=== PATIENT | female | born 1960 | race African-American/Black ===

== ENCOUNTER 2018-12-14 13:52 | Observation (INO) ==
[2018-12-14] MEDS ORDERED: ASPIRIN PO ONE (13:55)
[2018-12-14 14:36] LABS: BASO# 0.02 X1000 (0.0-0.2); BASO% 0.4 % (0.0-0.8); EOS# 0.07 X1000 (0.0-0.7); EOS% 1.3 % (0.0-10.0); HEMATOCRIT 37.1 % (37.0-47.0); HEMOGLOBIN 12.6 g/dL (12.0-16.0); LYMPH# 2.99 X1000 (1.2-3.4); MCH 24.6 PG (27-31); MCV 72.3 FL (81-99); MONO# 0.36 X1000 (0.11-0.59); MONO% 6.9 % (1.7-9.3); MPV 11.3 FL (7.4-10.4); NEUT# 1.81 X1000 (1.4-6.5); NEUT% 34.4 % (42.2-75.2); PLT 184 X1000 (130-400); RBC 5.13 XMIL (4.2-5.4); RDW 15.4 % (11.5-14.5); WBC 5.25 X1000 (4.8-10.8)
[2018-12-14] MEDS ORDERED: NITROGLYCERIN SL ONE (14:40)
--- NOTE | 2018-12-14 14:41 | Diag Imaging Result Doc PS360 ---
CHEST-2 VIEWS - 12/14/2018 INDICATION: cp COMPARISON: 08/17/2018 FINDINGS: The lungs are normally expanded and clear. Heart size and mediastinal contours are normal. No pneumothorax or pleural effusion. IMPRESSION: Negative exam. Electronically signed by Jeremiah Robertson 12/14/2018 2:39 PM
[2018-12-14 14:50] LABS: ALBUMIN 4.3 g/dL (3.5-5.0); CALCIUM 9.4 mg/dL (8.8-10.2); POTASSIUM 5.1 mmol/L (3.5-5.1); TOTAL BILIRUBIN 0.5 mg/dL (0.20-1.00); TOTAL PROTEIN 7.3 g/dL (6.3-8.3)
[2018-12-14 14:52] LABS: INR 1.15; PROTIME 15.3 Seconds (11.0-16.0)
[2018-12-14 14:53] LABS: PTT 27.2 Seconds (22.3-41.8)
--- NOTE | 2018-12-14 16:39 | EKG Report ---
Test Performed on : 12/14/2018 3:46:48 PM Test Reason : repeat Blood Pressure : / mmHG Vent. Rate : 073 BPM Atrial Rate : 073 BPM P-R Int : 172 ms QRS Dur : 090 ms QT Int : 404 ms P-R-T Axes : 079 -56 062 degrees QTc Int : 445 ms Sinus rhythm. with marked sinus arrhythmia. with frequent premature ventricular complexes. Biatrial enlargement Left anterior fascicular block Abnormal ECG When compared with ECG of 14-DEC-2018 13:58, (Unconfirmed) No significant change was found Unconfirmed Result
--- NOTE | 2018-12-14 16:39 | EKG Report ---
Test Performed on : 12/14/2018 1:58:58 PM Test Reason : cp Blood Pressure : / mmHG Vent. Rate : 088 BPM Atrial Rate : 088 BPM P-R Int : 158 ms QRS Dur : 090 ms QT Int : 386 ms P-R-T Axes : 085 -53 065 degrees QTc Int : 467 ms Sinus rhythm. with frequent premature ventricular complexes. in a pattern of bigeminy. Biatrial enlargement Pulmonary disease pattern Left anterior fascicular block Abnormal ECG When compared with ECG of 05-JUN-2017 05:37, premature ventricular complexes. are now present Vent. rate has increased BY 33 BPM QT has lengthened Unconfirmed Result
[2018-12-14] MEDS ORDERED: LOVENOX 1 MG/KG SUBQ ONE (17:40)
--- NOTE | 2018-12-14 18:01 | PROVIDER DOCUMENTATION ---
This chart was entered by Keyla Murray Scribe, acting as scribe for Musa Su MD. HPI-Chest Pain - General Chief Complaint: Chest Pain Stated Complaint: CHEST / ARM PAIN Time Seen by Provider: 12/14/18 14:00 Source: patient Allergies/Adverse Reactions: Patient Allergies Allergy/AdvReac Type Severity Reaction Status Date / Time azithromycin Allergy Unknown Verified 11/18/16 06:57 Home Medications: Home Medication List Medication Instructions Recorded Confirmed Last Taken Type Amoxicillin 875 mg PO BID #20 tab 08/17/18 Unknown Rx Guaifenesin/Codeine [Robitussin-AC] 10 ml PO Q4H PRN PRN #4 oz 08/17/18 Unknown Rx - History of Present Illness-CP Nature of Presenting Problem: 58 y/o female presents to ED with intermittent tight/heavy sternal chest pain radiating to L shoulder and down L arm onset this morning around 10:00. Pt reports hx NV. Pt denies pain at time of exam. Pt is alert and oriented. Location: reports: other (sternal) Chest Pain Radiation: reports: arms (L), shoulders (L) Quality of Pain: reports: tightness, other (heavy) Severity in ED: mild, moderate Onset/Duration: 4-6 hours ago, this morning Timing: still present, intermittent Context/Activities at Onset: reports: none Modifying Factors: improves with: nothing Associated Symptoms: reports: denies symptoms Nitro Today/Relief: 0.4 mg x 1, provided by ED Aspirin Treatment Today: 325 mg x 1, provided by ED Prior Chest Pain/Cardiac Workup: reports: heart attack Similar Symptoms Previously?: Yes (hx NV) Recently Seen Here or By Another Healthcare Provider: No Review of Systems - Adult - REVIEW OF SYSTEMS - ADULT Constitutional: denies: chills, fever Eyes: reports: no symptoms reported Ears, Nose, Mouth & Throat: reports: no symptoms reported Cardiovascular: reports: chest pain. denies: palpitations Respiratory: denies: cough, shortness of breath Gastrointestinal: denies: abdominal pain, diarrhea, nausea, vomiting Genitourinary: reports: no symptoms reported Musculoskeletal: reports: joint pain (L shoulder), other (L arm). denies: back pain Integumentary: reports: no symptoms reported Neurological: denies: dizziness/vertigo, seizure Psychiatric: reports: no symptoms reported Endocrine: reports: no symptoms reported Hematologic/Lymphatic: reports: no symptoms reported Allergic/Immunologic: reports: no symptoms reported All Other Systems: Reviewed and Negative Past History - Adult - PAST MEDICAL HISTORY-ADULT Review of Records: reports: Old Records Reviewed, Nursing Assessment Review, Medications Reviewed Major Childhood Illnesses: reports: denies history Cardiovascular: reports: denies history, NV Respiratory: reports: denies history Gastrointestinal: reports: denies history Genitourinary: reports: denies history Musculoskeletal: reports: denies history Neurological: reports: denies history Psychiatric: reports: denies history Endocrine/Immune: reports: denies history Other Conditions: reports: denies history - PRIOR SURGERIES/PROCEDURES Surgical/Procedure History: reports: cholecystectomy, hysterectomy - IMMUNIZATION STATUS Childhood Immunizations: See Nurse Assessment Flu Vaccine: See Nurse Assessment - FAMILY HISTORY Family History: reviewed, not pertinent - SOCIAL HISTORY Smoking: greater than 1 pack/day Provider spent 3-5 mins advising pt. on dangers of tobacco.: Discussed manners to quit use, and f/u contacts for add'l counseling. Substance Use: none/never Alcohol Use Frequency: occasionally Living Situation: family Physical Exam-General - PHYSICAL EXAM-ADULT Initial Vital Signs Reviewed: Yes - CONSTITUTIONAL General Appearance: appears well, alert, no apparent distress - EYES Eyes: PERRL/EOMI, pink conjunctivae - HEAD, EARS, NOSE, MOUTH & THROAT HENMT: normocephalic/atraumatic, moist mucous membranes, normal ENT inspection - NECK Neck: non-tender, full range of motion - RESPIRATORY Respiratory: chest non-tender, lungs clear, normal breath sounds - CARDIOVASCULAR Cardiovascular: normal peripheral pulses, regular rate, rhythm - GASTROINTESTINAL (ABDOMEN) Abdominal Exam: normal bowel sounds, non tender, soft - MUSCULOSKELETAL Back Exam: normal inspection, no CVA tenderness Extremity: normal range of motion, non-tender, normal gait - SKIN Integumentary: normal color, warm/dry - NEUROLOGIC Neurologic: grossly normal - PSYCHIATRIC Psych/Mental Status: normal mood/affect, normal thought content, normal thought process - HEART Score HEART Score: History: Slightly Suspicious HEART Score: ECG: Normal HEART Score: Age: 45-65 Years HEART Score: Risk Factors for Atherosclerotic Disease: 1 or 2 Risk Factors HEART Score: Troponin: < or = Normal Limit Total HEART Score:: 2 Progress - PLAN OF CARE/RESULTS Progress/Plan/Lab Results: Vital Signs - 8 hr 12/14/18 14:40 12/14/18 15:00 12/14/18 16:30 Pulse Rate 74 77 67 Respiratory Rate 18 19 18 Blood Pressure 131/89 110/84 136/85 O2 Sat by Pulse Oximetry 100 100 99 Laboratory Results - last 24 hr 12/14/18 12/14/18 12/14/18 14:20 14:20 14:20 WBC 5.25 RBC 5.13 Hgb 12.6 Hct 37.1 MCV 72.3 L MCH 24.6 L MCHC 34.0 RDW Std Deviation 15.4 H Plt Count 184 MPV 11.3 H Immature Gran % (Auto) 0.0 Neut % (Auto) 34.4 L Lymph % (Auto) 57.0 H Carson % (Auto) 6.9 Eos % (Auto) 1.3 Baso % (Auto) 0.4 Immature Gran # (Auto) 0.00 Neut # (Auto) 1.81 Lymph # (Auto) 2.99 Carson # (Auto) 0.36 Eos # (Auto) 0.07 Baso # (Auto) 0.02 PT INR PTT (Actin FS) Sodium 142 Potassium 5.1 Chloride 104 Carbon Dioxide 27 Anion Gap 11 BUN 13 Creatinine 1.0 H Estimated GFR/1.73 m2 57 BUN/Creatinine Ratio 13 Glucose 92 Calculated Osmolality 283 Calcium 9.4 Total Bilirubin 0.50 AST 22 ALT 17 Alkaline Phosphatase 63 Creatine Kinase 137 Troponin T Djn-P-Syusqyjmsbc Pept 316 H Total Protein 7.3 Albumin 4.3 Globulin 3.0 Albumin/Globulin Ratio 1.0 12/14/18 12/14/18 12/14/18 14:20 14:20 15:27 WBC RBC Hgb Hct MCV MCH MCHC RDW Std Deviation Plt Count MPV Immature Gran % (Auto) Neut % (Auto) Lymph % (Auto) Carson % (Auto) Eos % (Auto) Baso % (Auto) Immature Gran # (Auto) Neut # (Auto) Lymph # (Auto) Carson # (Auto) Eos # (Auto) Baso # (Auto) PT 15.3 INR 1.15 PTT (Actin FS) 27.2 Sodium Potassium Chloride Carbon Dioxide Anion Gap BUN Creatinine Estimated GFR/1.73 m2 BUN/Creatinine Ratio Glucose Calculated Osmolality Calcium Total Bilirubin AST ALT Alkaline Phosphatase Creatine Kinase 129 Troponin T < 0.010 Yru-W-Ngajlzotbso Pept Total Protein Albumin Globulin Albumin/Globulin Ratio 12/14/18 15:27 WBC RBC Hgb Hct MCV MCH MCHC RDW Std Deviation Plt Count MPV Immature Gran % (Auto) Neut % (Auto) Lymph % (Auto) Carson % (Auto) Eos % (Auto) Baso % (Auto) Immature Gran # (Auto) Neut # (Auto) Lymph # (Auto) Carson # (Auto) Eos # (Auto) Baso # (Auto) PT INR PTT (Actin FS) Sodium Potassium Chloride Carbon Dioxide Anion Gap BUN Creatinine Estimated GFR/1.73 m2 BUN/Creatinine Ratio Glucose Calculated Osmolality Calcium Total Bilirubin AST ALT Alkaline Phosphatase Creatine Kinase Troponin T < 0.010 Vhh-S-Onjfpfarcro Pept Total Protein Albumin Globulin Albumin/Globulin Ratio Orders Category Date Time Status Admit - [facility] Routine AdmDCTranf 12/14/18 17:44 Active Cardiac Monitoring DIRECTED Care 12/14/18 13:55 Active Saline Loc NOW Care 12/14/18 13:55 Completed CHEST-2 VIEWS [RAD] Stat Exams 12/14/18 13:55 Completed CBC WITH ELECTRONIC DIFF [HEME] Stat Lab 12/14/18 14:20 Completed CK PROFILE [SP CHEM] Stat Lab 12/14/18 14:20 Completed CK PROFILE [SP CHEM] Stat Lab 12/14/18 15:27 Completed COMPREHENSIVE METABOLIC PANEL [CHEM] Stat Lab 12/14/18 14:20 Completed PRO B-NATRIURETIC PEPTIDE Stat Lab 12/14/18 14:20 Completed PROTIME WITH INR [COAG] Stat Lab 12/14/18 14:20 Completed PTT [COAG] Stat Lab 12/14/18 14:20 Completed TROPONIN T Stat Lab 12/14/18 14:20 Completed TROPONIN T Stat Lab 12/14/18 15:27 Completed Aspirin Med 12/14/18 13:55 Discontinued 325 mg PO NOW ONE Enoxaparin 1 mg/kg [Lovenox 1 mg/kg] Med 12/14/18 17:40 Discontinued 1 each SUBQ NOW ONE Nitroglycerin Sl [Nitroglycerin] Med 12/14/18 14:40 Discontinued 0.4 mg SL NOW ONE CP/SOB/Palp >45 yrs of Age Stat Oth 12/14/18 13:55 Ordered EKG [EKG] Stat Ther 12/14/18 13:55 Draft EKG [EKG] Stat Ther 12/14/18 15:27 Draft Transfer/Admit Order [TRANSFER] Routine Transfer 12/14/18 17:45 Ordered Laboratory Tests 12/14/18 12/14/18 12/14/18 14:20 14:20 14:20 WBC 5.25 RBC 5.13 Hgb 12.6 Hct 37.1 MCV 72.3 L MCH 24.6 L MCHC 34.0 RDW Std Deviation 15.4 H Plt Count 184 MPV 11.3 H Immature Gran % (Auto) 0.0 Neut % (Auto) 34.4 L Lymph % (Auto) 57.0 H Carson % (Auto) 6.9 Eos % (Auto) 1.3 Baso % (Auto) 0.4 Immature Gran # (Auto) 0.00 Neut # (Auto) 1.81 Lymph # (Auto) 2.99 Carson # (Auto) 0.36 Eos # (Auto) 0.07 Baso # (Auto) 0.02 PT INR PTT (Actin FS) Sodium 142 Potassium 5.1 Chloride 104 Carbon Dioxide 27 Anion Gap 11 BUN 13 Creatinine 1.0 H Estimated GFR/1.73 m2 57 BUN/Creatinine Ratio 13 Glucose 92 Calculated Osmolality 283 Calcium 9.4 Total Bilirubin 0.50 AST 22 ALT 17 Alkaline Phosphatase 63 Creatine Kinase 137 Troponin T Uyi-M-Dtaoegkgfth Pept 316 H Total Protein 7.3 Albumin 4.3 Globulin 3.0 Albumin/Globulin Ratio 1.0 12/14/18 12/14/18 12/14/18 14:20 14:20 15:27 WBC RBC Hgb Hct MCV MCH MCHC RDW Std Deviation Plt Count MPV Immature Gran % (Auto) Neut % (Auto) Lymph % (Auto) Carson % (Auto) Eos % (Auto) Baso % (Auto) Immature Gran # (Auto) Neut # (Auto) Lymph # (Auto) Carson # (Auto) Eos # (Auto) Baso # (Auto) PT 15.3 INR 1.15 PTT (Actin FS) 27.2 Sodium Potassium Chloride Carbon Dioxide Anion Gap BUN Creatinine Estimated GFR/1.73 m2 BUN/Creatinine Ratio Glucose Calculated Osmolality Calcium Total Bilirubin AST ALT Alkaline Phosphatase Creatine Kinase 129 Troponin T < 0.010 Het-I-Izfterhobwp Pept Total Protein Albumin Globulin Albumin/Globulin Ratio 12/14/18 15:27 WBC RBC Hgb Hct MCV MCH MCHC RDW Std Deviation Plt Count MPV Immature Gran % (Auto) Neut % (Auto) Lymph % (Auto) Carson % (Auto) Eos % (Auto) Baso % (Auto) Immature Gran # (Auto) Neut # (Auto) Lymph # (Auto) Carson # (Auto) Eos # (Auto) Baso # (Auto) PT INR PTT (Actin FS) Sodium Potassium Chloride Carbon Dioxide Anion Gap BUN Creatinine Estimated GFR/1.73 m2 BUN/Creatinine Ratio Glucose Calculated Osmolality Calcium Total Bilirubin AST ALT Alkaline Phosphatase Creatine Kinase Troponin T < 0.010 Zgy-A-Zmwxevuczhm Pept Total Protein Albumin Globulin Albumin/Globulin Ratio Result Diagrams: 12/14/18 14:20 12/14/18 14:20 - EKG 1 Time of EKG reading by physician:: 13:58 EKG Read and Signed by:: Musa Su EKG Interpretation (*Must complete 3 of following elements*): Abnormal Rate: 88 Rhythm: Sinus w/ frequent PVCs in a pattern of bigeminy Prentiss: normal QRS: other (biatrial enlargement; pulmonary disease pattern; L anterior fascicular block) ID Interval: normal ST Wave: normal 2 Time of EKG reading by physician:: 15:46 EKG Read and Signed by:: Musa Su EKG Interpretation (*Must complete 3 of following elements*): Abnormal Rate: 73 Rhythm: Sinus w/ marked sinus arrhythmia w/ frequent PVCs Prentiss: normal QRS: PVC's, other (bitarial enlargement; L anterior fascicular block) ID Interval: normal ST Wave: normal - XRAY 1 XRAY Study: Chest Impression: Normal (FINDINGS: The lungs are normally expanded and clear. Heart size and mediastinal contours are normal. No pneumothorax or pleural effusion. IMPRESSION: Negative exam. Electronically signed by Jeremiah Robertson 12/14/2018 2:39 PM) - CONSULTS/PCP/HOSPITALIST Notification #1 *Consult/PCP/Hospitalist*: Dr. Wills Time Discussed: 17:27 Reason/Comments: Chest pain Consult Disposition: Admit (consult cardiology) #2 Consult: Dr. Jerez, cardiology Time Discussed: 17:37 Reason/Comments: Chest pain Consult Disposition: Admit Departure - Departure Date of Disposition Decision: 12/14/18 Time of Disposition Decision: 18:00 DIAGNOSIS: Ischemic heart disease, Tobacco abuse disorder Hypertension Qualifiers: Hypertension type: unspecified Qualified Code(s): I10 - Essential (primary) hypertension Chest pain Qualifiers: Chest pain type: unspecified Qualified Code(s): R07.9 - Chest pain, unspecified Disposition: ADMITTED INPATIENT 09 Certified Medical Emergency: Emergent Condition: Stable Additional Freetext Instructions: ED Follow Up Instructions: You have been treated by a care provider in the Emergency Department. These instructions are being provided to you so you can have an understanding of how to care for yourself upon discharge. Upon discharge from the Emergency Department, you are responsible for making arrangements for follow-up care by a physician of your choice. Take all prescribed medications as directed. Return to the Emergency Department immediately for any new or worsening symptoms. You may call the Physician Referral phone number at [phone] to obtain a list of Physicians who are taking new patients. Referrals and Follow-Ups: None,PCP [NON-STAFF PROVIDER] - Discharge Education: Steps to Quit Smoking, Seuh-ni-Uyed - Critical Care Note This patient required my direct & personal management of CC.: No Attestation - Physician/ LEXI Attestation Patient care was provided by Advanced Practice Provider:: No The physician spent face to face time with patient:: Yes Advanced Practice Provider documentation review:: Supervising physician onsite and consulted in the evaluation and care of this patient. The physician did have a face to face encounter with the patient. This chart was documented by the indicated scribe, (Keyla Murray Scribe) and accurately reflects the services I performed and decisions made by me, Musa Su MD, as attested by the provider's signature.
[2018-12-14] MEDS ORDERED: LOVENOX ONE (18:12)
[2018-12-14] MEDS ORDERED: NITROGLYCERIN SL PRN (22:04)
[2018-12-14] MEDS ORDERED: ZOFRAN IV PRN (22:04)
[2018-12-14] MEDS ORDERED: MORPHINE IV PRN (22:04)
[2018-12-15] MEDS: LOVENOX SUBQ SCH ×2 (06:18→17:11)
[2018-12-15] MEDS ORDERED: LIPITOR PO SCH (09:00)
[2018-12-15] MEDS: ASPIRIN PO SCH (10:03)
[2018-12-15] MEDS: IMDUR PO SCH (10:03)
--- NOTE | 2018-12-15 12:29 | HISTORY AND PHYSICAL ---
ADDENDUM REPORT I saw the patient [id number] and fully agree with the assessment and plan of nurse practitioner Loree Santana. This is a 58-year-old female, who came into the emergency room with tightness and heaviness in her chest, radiating to left shoulder and down her left arm starting at 10 a.m. yesterday. She was noted to have negative serial cardiac enzymes, and acute myocardial ischemia has been ruled out, but she is known to have history of dyslipidemia. She has been admitted with chest pain, and we have obtained echocardiogram done today. She is also scheduled to have a Lexiscan myocardial perfusion study tomorrow morning. We consulted Cardiology over the phone from the emergency room, who has recommended her to have Lovenox given subcutaneously, and they will see the patient during this hospital admission. We will continue her on aspirin 81 mg daily along with atorvastatin 80 mg daily. Further recommendations will be forthcoming. cc: Gomez Wills MD
--- NOTE | 2018-12-15 12:30 | HISTORY AND PHYSICAL ---
PRIMARY CARE PHYSICIAN: Dr. Dsouza at the [facility] in [place]. CHIEF COMPLAINT: Chest pain. HISTORY OF PRESENTING ILLNESS: This is a 58-year-old, female who presented to [facility] ER with complaints of substernal chest pain that was intermittent, described it as a tight, heavy feeling that radiated to her left shoulder and left arm that began around 10 a.m. yesterday morning. It had resolved by the time she arrived to the emergency room. She is noted to have had an [place] in June of 2017 and states that this felt different from her previous [place] in that her previous one did not radiate down her arm and this pain has radiated into her shoulder and left arm. Her workup in the emergency room showed cardiac enzymes x2 sets have been negative. Her EKG showed sinus rhythm with marked sinus arrhythmias with frequent PVCs at 73. Chest x-ray was negative and so she has been admitted for further evaluation and treatment. PAST MEDICAL HISTORY: [place] in June of 2017. PAST SURGICAL HISTORY: Cholecystectomy and hysterectomy. FAMILY HISTORY: Reviewed and noncontributory. SOCIAL HISTORY: She currently lives with family. Smokes a half a pack of cigarettes a day and has done so for the past 30 years. Denied any alcohol or illicit drug use. ALLERGIES: Azithromycin. HOME MEDICATIONS: She takes aspirin 81 mg p.o. daily, Lipitor 80 mg p.o. daily, and isosorbide 30 mg p.o. daily. LABORATORY DATA: Showed a white blood cell count of 5.25, hemoglobin of 12.6, hematocrit 37.1, platelets 184,000. The PT and INR of 15.3 and 1.15. Sodium of 142, potassium 5.1, chloride 104, CO2 27, BUN of 13, creatinine 1, glucose 92. Cardiac enzymes have been negative x2 sets. ProBNP of 316. Chest x-ray showed a negative exam. EKG showed sinus rhythm with marked sinus arrhythmias with frequent PVCs at 73. REVIEW OF SYSTEMS: She denied any fever, chills, blurred vision, dizziness. She was positive for sternal intermittent chest pain that radiated to her left shoulder and left arm. Denied any shortness of breath, cough, abdominal pain, constipation, diarrhea, burning or hurting with urination. Denied any nausea or vomiting. PHYSICAL EXAMINATION: VITAL SIGNS: On arrival, she had a pulse of 74, respirations 18, blood pressure 131/89, saturating 100% on room air. GENERAL: This is a 58-year-old, -[place] female who was sitting on the side of the bed and answers questions appropriately. HEENT: Normocephalic and atraumatic. Normal ENT inspection. Oropharynx and nares are clear. Eyes: Pupils are equal, round, and reactive to light and accommodation. Extraocular movements are intact. NECK: Normal inspection. Normal range of motion. LUNGS: Clear to auscultation bilaterally with equal lung expansion and chest wall movement. HEART: With regular rate and rhythm. No murmurs, rubs, or gallops. ABDOMEN: Soft, nontender, nondistended. Bowel sounds are present x4 quadrants. MUSCULOSKELETAL: She has 5/5 strength x4 extremities. NEUROLOGICAL: The cranial nerves 2-12 appear grossly intact. ASSESSMENT: 1. Chest pain. 2. Coronary artery disease, history of. 3. Tobacco abuse. PLAN: She was admitted to the medical unit. Placed on telemetry, healthy heart diet. She will be n.p.o. after midnight for a myocardial perfusion scan in the a.m. We have consulted cardiology. We are going to do one more set of cardiac enzymes to complete her series of three. Continue her home medication. She is on Lovenox 60 mg subcutaneously q.12, morphine 2 mg IV q.2 hours p.r.n. Further orders after being seen by attending and by consultation. Dictated by RAVIN Hickman for Gomez Wills MD cc: RAVIN Hickman MD Rani Gill, MD
--- NOTE | 2018-12-15 15:04 | ECHO REPORT ---
ORDER DATE: 12/15/2018 ECHOCARDIOGRAM: INDICATION FOR PROCEDURE: Chest pain. History of coronary artery disease. FINDINGS: 1. The right atrium appears normal in size at 2.3. 2. Mild tricuspid regurgitation. The RV systolic pressure is 35. 3. Normal RV size and systolic function. 4. No significant pulmonic insufficiency. 5. Normal left atrial size with a volume index of 23. 6. No mitral valve prolapse. Mild mitral regurgitation. 7. Normal LV size, end-diastolic dimension of 4 cm. Normal wall thicknesses with a posterior and interventricular septal wall thickness of 0.7 and 1.1 cm respectively. Borderline normal to mildly reduced LV systolic function with an estimated EF of 45-50%. In some views, there is hypokinesis of the septum. 8. Aortic valve opens well. No evidence of stenosis or insufficiency. 9. Aorta appears normal in visualized segments. 10. No pericardial effusion seen. cc: MD Gomez Roman MD
--- NOTE | 2018-12-15 16:10 | CARDIOLOGY CONSULTATION ---
DATE: 12/15/2018 CHIEF COMPLAINT: Chest pain. HISTORY OF PRESENT ILLNESS: Ms. Paez is a 58-year-old, black female with a history of coronary artery disease. She presented for evaluation of chest pain that began yesterday. This began at rest. She had multiple episodes that lasted for a few minutes. It felt as a tight, heavy feeling. There was some radiation to the left arm. She had no other associated symptoms. No nausea or vomiting. No diaphoresis. No exertional component. No orthopnea. She reports compliance with her medications. However, she continues to smoke. PAST MEDICAL HISTORY: 1. Significant for a non-ST elevation ID that occurred in 2017. This was evaluated by cardiac catheterization which did not find any culprit lesion. She was treated medically. Her left main was normal. Her LAD had mild luminal irregularities with a 30% proximal lesion in the diagonal. Circumflex had minimal luminal irregularities. The RCA had a mid 30 to 40 percent lesion. 2. Atrial septal aneurysm with no evidence of shunt across the septum. 3. Diastolic dysfunction. 4. Tobacco abuse. SOCIAL HISTORY: She continues to smoke and has done so for the last 30 years. FAMILY HISTORY: Negative for any early coronary artery disease in first-degree relatives. REVIEW OF SYSTEMS: A 10 system review of systems is negative except for those things mentioned in the HPI. PHYSICAL EXAMINATION: Vital Signs: She is afebrile. Her heart rate is 79, blood pressure 102/70. General: She is in no acute distress. HEENT: Oropharynx is moist. Poor dentition. Eye examination shows pink conjunctivae and white sclerae. Neck: Examination shows no obvious thyromegaly or thyroid tenderness. Cardiovascular: She sounds to be in a regular rate and rhythm. She has no murmurs. No S3. She has no lower extremity edema. Chest Examination: Clear bilaterally. She has no increased work of breathing. She has no reproducible pain with palpation of the sternal area. Abdomen: Soft, nontender, nondistended. She has no obvious organomegaly. Skin: Examination is warm and dry throughout without any rashes. Neurological: She is moving all extremities well. She has no lateralizing deficits. PERTINENT DATA: EKG at 1358 yesterday showed sinus rhythm with what appears to be PVCs in a pattern of bigeminy. She has no evidence of ischemic changes. Subsequent EKG occurring on the at 1546 shows sinus rhythm with evidence for multiple PACs. Her laboratory data is pertinent for normal cardiac enzymes. Her white count is 5.2, hematocrit 37, platelet count 184,000. Her sodium is 142, potassium is 5.1, BUN 13, creatinine is 1. Her proBNP was 316. ASSESSMENT: Ms. Paez is a 58-year-old, black female with a history of cardiac catheterization in 2017 with unremarkable coronaries from the standpoint of no culprit lesion, although she had elevated enzymes at that time. She presented with chest pain. PLAN: I have added in a beta-alessandra. Coronary spasm may be a potential culprit. She is on a nitrate. Presently, she is set up for myocardial perfusion imaging in the morning, which I think is reasonable. Her echocardiogram did show wall motion abnormality in the inferior septum that was consistent with a previous echocardiogram in 2017. At this point, she is on high-intensity statin therapy as well as a low dose of aspirin. If the cardiac stress test is normal in the morning, then she could likely be discharged with followup with Dr. Cortez in the future. cc: MD Gomez Roman MD
[2018-12-16] MEDS: LOVENOX SUBQ SCH ×2 (05:42→17:16)
[2018-12-16] MEDS ORDERED: TOPROL XL PO SCH (09:00)
[2018-12-16] MEDS ORDERED: LEXISCAN ONE (10:00)
--- NOTE | 2018-12-16 11:40 | GRADED EXERCISE REPORT ---
DATE: 12/16/2018 ORDERING PROVIDER: Dr. Wills or Dr. Hassan TECHNIQUE: The patient underwent Lexiscan per protocol. Her baseline EKG shows PVCs, right atrial enlargement, possibly old anterior VA. She underwent infusion with 0.4 mg. She did not develop any significant chest pain during her test. She had still occasional PVCs but other than that had no significant ST changes. Her peak blood pressure was 144/87, baseline heart rate 58, but heart rate did rise to 122. Test was felt to be clinically negative and electrically negative. Myocardial perfusion reported separately. cc: Frank Valera MD
[2018-12-16] MEDS: IMDUR PO SCH (12:33)
[2018-12-16] MEDS: ASPIRIN PO SCH (12:33)
[2018-12-16 15:19] VITALS: BP 107/67
--- NOTE | 2018-12-16 15:20 | Diag Imaging Result Document ---
PROCEDURE NAME: MYOCARDIAL PERF SCAN, STR/REST - 12/16/2018 LEXISCAN SESTAMIBI INTERPRETATION: SUMMARY: The patient administered 10.8 mCi of technetium-99m sestamibi, after which resting cardiac images were obtained. The patient was subsequently administered Lexiscan 0.4 mg intravenously, after which the heart rate went from 59 beats per minute to 104 beats per minute and the blood pressure went from 130/80 to 144/87. With Lexiscan, the patient denied chest discomfort. Following administration of Lexiscan, the patient was administered 31.4 mCi of technetium-99m sestamibi, after which gated stress cardiac images were obtained. Baseline ECG demonstrated sinus rhythm with occasional premature ventricular complex. Left axis deviation demonstrated probably due to left anterior fascicular block. Nonspecific T-wave abnormality demonstrated. With Lexiscan, there were no diagnostic ST-segment changes. SPECT images were reconstructed in the short, horizontal long, and vertical long axes. Review of these images demonstrated a small area of mildly diminished activity in the basal inferolateral region of the left ventricle on stress images, which appears unchanged on resting images. No significant reversibility is evident. Gated images demonstrate a calculated left ventricular ejection fraction of 55% with symmetrical wall motion/thickening. CONCLUSIONS: 1. Adequate response to Lexiscan. 2. Clinically negative for chest pain. 3. Electrocardiographically, there were no diagnostic ST-segment changes on ECG following the administration of Lexiscan. 4. Lexiscan sestamibi images demonstrate small fixed area of mild to moderate diminished activity in the basal inferolateral region of the left ventricle with preserved regional wall motion, most consistent with soft tissue attenuation. There is no convincing scintigraphic evidence of inducible myocardial ischemia. Normal left ventricular systolic function demonstrated. cc: MD Loree Portillo CRNP
[2018-12-16] MEDS ORDERED: LIPITOR PO SCH (21:00)
--- NOTE | 2018-12-17 08:20 | DISCHARGE SUMMARY ---
ADMISSION DATE: 12/14/2018 DISCHARGE DATE: 12/16/2018 DISCHARGE DIAGNOSES: 1. Nausea and vomiting, resolved. 2. Chest pain, resolved. 3. Known coronary artery disease. 4. Chronic tobacco abuse. Again, discussed with the patient the perils of smoking as well as ways to stop. CONSULTATIONS: None. PROCEDURES: Cardiolite GXT reported as negative. BRIEF HOSPITAL COURSE: The patient is a 58-year-old female who presented to the hospital. She does have a known coronary disease with an CO in 06/2017. She was admitted due to chest pain, palpitations. Thankfully, this resolved. On discharge, she is awake, alert. She is in no distress. She did undergo a stress test, which thankfully was negative. DISPOSITION: The patient will be discharged home. TIME SPENT: Greater than 30 minutes were spent in total care. Discussed with the patient that she needs to avoid all persons and places that are smoking. She needs to avoid all smoke exposure. She needs to follow up outpatient with her primary care. No changes were made in her home medication. She should continue taking an aspirin each day. cc: Coleman Barnes MD
== END 2018-12-16 18:44 | disposition home or self-care (01) ==
LOC: P.ED 13:52 → INTOOBSV 13:53 → P.MEDSURG 13:53 → SUATTDRO 13:53
PROVIDERS: ATTEND Family Medicine
CPT/HCPCS: 71020; 71046; 78452; 80053; 82550; 83880; 84484; 85025; 85610; 85730; 93005; 93017; 93306; 96372; 99285; A9270; A9500; J1650; J2785